=== PATIENT | male | born 1960 | race Caucasian/White ===

== ENCOUNTER → 2019-09-10 09:42 | Outpatient (CLI) | payer BC, SELFPAY ==
[2019-02-27 11:26] VITALS: BMI 44.6
--- NOTE | 2019-09-10 09:43 | ECHOCS_ITS ---
Reason For Study: AVR Procedure This was a 2D Doppler, Color Flow transthoracic echocardiogram. The study was technically difficult. Exam performed in department. Left Ventricle Normal LV size. The estimated ejection fraction is 60 %. Unable to assess diastolic dysfunction. No regional wall motion abnormalities noted. Right Ventricle Normal RV size. Normal systolic function. Atria The left atrium is moderately enlarged. Normal right atrium. No doppler evidence for ASD. Mitral Valve There is moderate mitral annular calcification. There is no mitral valve stenosis. Mild (1+) mitral valve insufficiency. Tricuspid Valve There is no tricuspid stenosis. Trivial tricuspid valve insufficiency. Pulmonary artery systolic pressure is 35 mmHg. Aortic Valve There is no aortic stenosis. Trivial aortic valve insufficiency. Stable appearing bioprosthetic aortic valve apparatus. Pulmonic Valve There is no pulmonic valvular stenosis. No pulmonic valve insufficiency. Great Vessels Normal aortic root. Pericardium/Pleural No pericardial effusion. Medication 22 gauge I.V. with prn adaptor inserted into right arm. Diluted definity 3ml given slow IV push to enhance endocardial definition. MMode/2D Measurements & Calculations LVIDd: 5.3 cm IVSd: 1.3 cm LVOT diam: 2.2 cm LVIDs: 3.8 cm LVPWd: 1.2 cm RVDd: 3.2 cm FS: 29.1 % LVOT area: 3.7 cm2 Ao root diam: 3.8 cm LAV(MOD-bp): 82.6 ml LA A4 area: 25.0 cm2 LAV(MOD-bp) Indexed: 38.9 ml/m2 LAV(MOD-sp2): 77.8 ml LAV(MOD-sp4): 77.2 ml LA dimension(2D): 4.4 cm RA A4 area: 20.7 cm2 Doppler Measurements & Calculations MV E max pranay: 82.0 cm/sec Lat Peak E' Pranay: 9.8 cm/sec Med Peak E' Pranay: 5.6 cm/sec MV A max pranay: 62.6 cm/sec E/E' lat: 8.4 E/E' med: 14.6 MV E/A: 1.3 Ao V2 max: 215.0 cm/sec LV V1 max: 126.7 cm/sec SV(LVOT): 115.4 ml Ao max P.5 mmHg LV V1 max P.4 mmHg Ao V2 mean: 144.8 cm/sec LV V1 mean P.6 mmHg Ao mean P.4 mmHg LV V1 mean: 90.1 cm/sec Ao V2 VTI: 53.2 cm LV V1 VTI: 31.4 cm MARY(I,D): 2.2 cm2 MARY(V,D): 2.2 cm2 PA V2 max: 87.0 cm/sec TR max pranay: 260.4 cm/sec TR max P.2 mmHg Interpretation Summary The study was technically difficult. Contrast injection was performed. The estimated ejection fraction is 60 %. Unable to assess diastolic dysfunction. The left atrium is moderately enlarged. Mild (1+) mitral valve insufficiency. Trivial tricuspid valve insufficiency. The study was technically difficult. Contrast injection was performed. Ordering Physician: Kenisha Avila Referring Physician: Lei Ramos MD Performed By: Josie Zayas RDCS
== END ==
PROVIDERS: PCP Family Medicine; Referring Provider Specialist; Visit Provider Specialist
DX: I11.0 Hypertensive heart disease with heart failure (principal); I50.9 Heart failure, unspecified; I27.20 Pulmonary hypertension, unspecified; E78.5 Hyperlipidemia, unspecified; Z95.2 Presence of prosthetic heart valve
CPT/HCPCS: 93306; Q9957; A4216; C8929

== ENCOUNTER → 2019-12-05 16:31 | Outpatient (CLI) | payer BC, SELFPAY ==
[2019-10-02 13:02] VITALS: BMI 43.9
[2019-12-05 17:59] LABS: Hemoglobin A1c 6.4 % (3.8-5.6)
[2019-12-05 18:01] LABS: ALB/GLOB Ratio 0.6 RATIO (0.9-2.4); AST(SGOT) 23 U/L (15-37); Alanine Aminotransfer ALT/SGPT 37 U/L (16-61); Albumin, Serum 2.9 g/dL (3.2-5.0); Alkaline Phosphatase 85 U/L (45-117); Anion Gap 3 (5-15); BUN 29 mg/dL (7-18); BUN/Creat Ratio 15.8 RATIO (10-20); Calcium,Total 8.6 mg/dL (8.5-10.1); Chloride 110 mmol/L (98-107); Creatinine, Serum 1.84 mg/dL (0.70-1.30); EST Glomerular Filtration Rate 40 mL/min (>60); Est Glom Filt Rate - Afr Amer 49 mL/min (>60); Globulin 4.5 g/dL (2.2-4.2); Glucose 105 mg/dL (74-106); Potassium 4.5 mmol/L (3.5-5.1); Protein, Total 7.4 g/dL (6.4-8.2); Sodium Level 141 mmol/L (136-145)
[2019-12-05 18:30] LABS: Partial Thromboplast Time 30.3 Seconds (24.1-36.2); Prothrombin Time (Protime)PT. 12.9 SECONDS (11.7-14.9)
[2019-12-06 10:27] LABS: Hepatitis B Surface Antigen Non-Reactive (Nonreactive); Hepatitis C Antibody Non-Reactive (Nonreactive)
== END ==
PROVIDERS: PCP Family Medicine; Referring Provider Internal Medicine Gastroenterology; Visit Provider Internal Medicine Gastroenterology
DX: K76.0 Fatty (change of) liver, not elsewhere classified (principal); E11.9 Type 2 diabetes mellitus without complications
CPT/HCPCS: 36415; 80053; 82105; 83036; 85610; 85730; 86803; 87340

== ENCOUNTER 2022-04-15 05:34 | Day surgery (SDC) | payer MEDICAID, SELFPAY ==
--- NOTE | 2022-04-13 12:43 | EKG12_ITS ---
Test Reason : PREOP Blood Pressure : / mmHG Vent. Rate : 062 BPM Atrial Rate : 062 BPM P-R Int : 204 ms QRS Dur : 152 ms QT Int : 476 ms P-R-T Axes : 035 -28 036 degrees QTc Int : 483 ms Normal sinus rhythm Right bundle branch block Abnormal ECG Confirmed by SEBAS HOGUE, COLLETTE ([id number]), associate entertainment editor ALO WALTERS ([id number]) on 04/14/2022 9:58:36 AM Referred By: Celso Almonte Confirmed By:COLLETTE MULLEN MD
[2022-04-13 13:43] LABS: Hematocrit 32.2 % (40-54); Hemoglobin 10.3 g/dL (13.0-16.5); Mean Corpuscular Hgb 30.1 pg (27.0-32.0); Mean Corpuscular Volume 94.2 fL (80-94); Mean Platelet Vol. 11.4 fl (6.2-12.0); Platelet Count 214 K/mm3 (150-450); RBC Distribution Width CV 14.1 % (11.6-14.6); RBC Distribution Width SD 47.9 fl (35.1-43.9); Red Blood Count 3.42 M/mm3 (4.6-6.2); White Blood Count 9.5 K/mm3 (4.4-11.0)
[2022-04-13 14:21] LABS: Anion Gap 5 (5-15); BUN 51 mg/dL (7-18); Calcium,Total 8.7 mg/dL (8.5-10.1); Chloride 110 mmol/L (98-107); Creatinine, Serum 3.65 mg/dL (0.70-1.30); EST Glomerular Filtration Rate 18 mL/min (>60); Est Glom Filt Rate - Afr Amer 22 mL/min (>60); Glucose 167 mg/dL (74-106); Potassium 4.3 mmol/L (3.5-5.1); Sodium Level 141 mmol/L (136-145)
[2022-04-15] VITALS (7 sets, daily range): BP systolic 137–164; BP diastolic 65–77; PULSE 57–72; RESP 16–18; TEMP 36.3–36.8; O2SAT 92–98; BMI 45.1
[2022-04-15 06:45] LABS: Bedside Glucose 151 mg/dL (74-106)
--- NOTE | 2022-04-15 07:15 | HP.PCM_ITS ---
History and Physical Date of Admission: 04/15/22 isit Reasons:?FISTULA CREATION Chief Complaint: fistula creation Renal Technician Required: No Is patient in pain?: No Allergies No Known Allergies Allergy (Verified 03/16/22 10:07) Medications cinnamon bark 500 mg capsule (Cinnamon) 1,000 mg PO BID 02/27/19 [History Confirmed 03/16/22] verapamil 240 mg tablet,extended release 240 mg PO QAM 02/27/19 [History Confirmed 03/16/22] glatiramer 40 mg/mL subcutaneous syringe 40 mg subcut .COMPLEX 10/02/19 [History Confirmed 03/16/22] glipizide 5 mg tablet 5 mg PO DAILY 10/02/19 [History Confirmed 03/16/22] lisinopril 40 mg tablet 40 mg PO DAILY #90 tabs 04/14/20 [Rx Confirmed 03/16/22] aspirin 81 mg tablet,delayed release (Adult Aspirin Regimen) 81 mg PO DAILY 05/23/20 [History Confirmed 03/16/22] carvedilol 25 mg tablet 25 mg PO BID 05/23/20 [History Confirmed 03/16/22] atorvastatin 20 mg tablet 20 mg PO DAILY #90 tabs 06/01/21 [Rx Confirmed 03/16/22] furosemide 20 mg tablet (Lasix) 20 mg PO DAILY #90 tabs 06/15/21 [Rx Confirmed 03/16/22] PFSH Medical History? CHF (congestive heart failure) Chronic kidney disease, stage IV (severe) Diabetes HLD (hyperlipidemia) Lyme disease Migraine headache Multiple sclerosis Pulmonary hypertension Severe aortic stenosis Surgical History? H/O aortic valve replacement H/O right wrist surgery History of ear surgery History of tonsillectomy Family History? Brother CancerFather Cancer CAD (coronary artery disease) Social History? how long ago did patient quit smoking:? 1 year ago alcohol intake:? current alcohol intake frequency: a few times a month Alcohol type: beer substance use type:? former substance user Date of last use: 2 years ago caffeine:? Yes Type: carbonated beverages HPI HPI HPI: 62-year-old gentlemanHe was referred by Dr Angella Zavala for surgical consultation regarding creation of arteriovenous hemodialysis fistula.? A written copy of my surgical consult and recommendations will return to him.? On February 28, 2022 at [facility] he had vein mapping.? The right upper arm basilic vein appears to be adequate.? The right forearm and upper arm cephalic vein appears more marginal.? The left upper arm basilic vein is adequate.? The left upper arm cephalic vein is borderline The patient is right arm dominant. He is disabled.? He does work around the home.? He has had a previous history of pins in his right wrist but that was remotely.? He has a pericardial tissue aortic valve.? He has a history of smoking cigarettes for 40 years and quit in 2017 when he had his heart valve. BMI is elevated at 46.? He is interested in possibly performing home hemodialysis. He has a new puppy.? He has multiple areas of injury excoriation of the left forearm ROS General General: No weight change, appetite, fatigue, colon cancer, breast cancer or weakness HEENT HEENT: No difficulty swallowing, eye injury, eye surgery, swollen glands or hoarseness Endo Endocrine: Yes diabetes mellitus; No thyroid disease, thyroid cancer, Hair loss, heat intolerance or cold intolerance Skin Skin: No rash or changing moles Breast Breast: No left breast lump, right breast lump, nipple discharge, breast pain, abnormal mammogram, abnormal US or breast enlargement Musc Musculoskeletal: Yes back problems, arthritis and gout; No rheumatoid arthritis or joint pain Cardio Cardiovascular: Yes high blood pressure; No murmur, pacemaker, heart disease, atrial fibrillation, heart attack, heart stent, palpitations, shortness of breat with exertion or chest pain Psych Psychiatric: No depression, anxiety or hearing voices Resp Respiratory: Yes shortness of breath, Yes sleep apnea, Yes cough, Yes COPD, No asthma, No emphysema and No wheezing Gastro Gastrointestinal: No abdominal pain, No nausea or vomiting, No diarrhea, No constipation, No blood in stool, No acid reflux, Yes hemorrhoids, No ulcers, No gallbladder problem and No black,tarry stools Keith Hematologic: No blood thinners, No blood disorders, No bleeding, No anemia and No blood clots Neuro Neurologic: No system reviewed and no additional complaints, except as documented, No as per HPI, No abnormal gait, No abnormal hearing, No abnormal movements, No abnormal speech, No behavioral changes, No burning sensations, No confusion, No convulsions, No disequilibrium, No dizziness, No localized weakness, No frequent falls, No headache(s), No lack of coordination, No loss of vision, No memory loss, No numbness, No other visual disturbances, No radicular pain, No restless legs, No sensory deficit, No syncope, No tingling, No tremor(s), No weakness and No other Exam Const General: cooperative, comfortable and no acute distress [facility] Head: normal to inspection Eyes General: appearance normal, both eyes and all related structures Neck Neck: normal visual inspection Chest Other: Increased AP diameter Resp Effort & Inspection: normal respiratory effort Auscultation: clear to auscultation bilaterally Cardio Rate: regular rate Rhythm: regular rhythm GI Other: Protuberant abdomen, overweight, cannot take detect any internal organs Musc Cervical Spine: normal cervical lordosis Skin General: no rashes or lesions noted Neuro General: patient alert, patient awake and patient oriented x3 Extrem General: no calf tenderness Other: Left forearm patent compressible cephalic vein albeit 5 to 6 mm deep.? Multiple areas of excoriation left forearm.? 3+ radial left radial pulse Psych Appearance: grossly normal Assessment and Plan Assessment and Plan (1) Chronic kidney disease, stage IV (severe): ?Status:?Chronic ?Plan: The patient is right arm dominant.? I am able to visualize the cephalic vein of the left forearm.? It branches closer to the wrist.? Unfortunate for majority of the forearm its rather deeply placed.? The patient has rather shorter forearms.? He is hoping to do home hemodialysis. I recommend that he completely heals left forearm from his new puppy areas as topical injury.? I have made it clear that he must have an absolutely clean forearm for us to pursue.? I propose for him a transposition left forearm cephalic vein to radial artery to venous hemodialysis fistula creation.? I described the technique, benefit, risk of alternatives.? He has had an opportunity to ask and have questions answered.? We will schedule and proceed at his discretion. I appreciate the opportunity of assisting with the surgical care Copy: Dr Angella Zavala and Dr. Lei Almonte M.D., F.A.C.S I have examined the patient and the H&P has been reviewed. There are no clinical changes since date of exam. Celso Almonte M.D., F.A.C.S.
--- NOTE | 2022-04-15 07:16 | EX.PCM.DISCH ---
Discharge Instructions Procedure Fistula Diet Discharge Diet: Renal Diet Activity Discharge Activity: May Not Drive (for 2-3 days or while taking narcotic pain medications.) and May Take a Tub Bath (in 5 days.) Lifting Restrictions: 5 pounds Keep extremity elevated above heart level: - (Keep arm elevated above the heart level for 3 days.) Dressing / Incision Call your doctor if your incision/area has: Continuous Slow Oozing, Sudden Increased Bleeding (apply pressure and call your doctor.), Increased Pain/ Swelling, Increased Redness and Foul Smelling Discharge Call your doctor if you observe: Fever of 101 or Higher Suture Line Care: Avoid Pulling/Pushing and Avoid Pinching/Bending Cleanse incision/area with: Keep Dressing Clean & Dry Additional Dressing/Incision Instructions:: Elevate your left arm for comfort. Keep the elastic wrap in place for 2 to 3 days. You may then remove it. Leave the Steri-Strips in place for an additional 1 week. Follow Up Care Please Follow Up With: Celso Almonte MD When: Call [phone] to make an appointment for suture removal and follow up in 10 days Discharge Plan Admission Attending Provider: Celso Almonte Primary Care Provider: Lei Ramos Discharge Orders/Prescriptions Prescriptions: No Action cinnamon bark [Cinnamon] 500 mg capsule 1,000 mg PO BID aspirin [Adult Aspirin Regimen] 81 mg tablet,delayed release (DR/EC) 81 mg PO DAILY carvedilol 25 mg tablet 25 mg PO BID Rx Instructions: must administer with a meal/food hydralazine 25 mg tablet 75 mg PO TID Label Comments: TAKE 3 TABLETS BY MOUTH THREE TIMES DAILY allopurinol 100 mg tablet 100 mg PO DAILY Label Comments: TAKE 2 TABLETS BY MOUTH ONCE DAILY tamsulosin 0.4 mg capsule 0.4 mg PO DAILY Label Comments: TAKE 1 CAPSULE BY MOUTH ONCE DAILY ferrous sulfate 325 mg (65 mg iron) Tablet 325 mg PO DAILY doxazosin 4 mg tablet 4 mg PO DAILY Label Comments: TAKE 1 TABLET BY MOUTH ONCE DAILY vitamin B complex Tablet 1 tab PO DAILY cholecalciferol (vitamin D3) [Vitamin D3] 125 mcg (5,000 unit) Tablet 125 mcg PO DAILY Lokelma 10 gram powder in packet 10 g PO QODAY Label Comments: MIX AND DRINK 1 PACKET BY MOUTH EVERY DAY furosemide [Lasix] 20 mg tablet 40 mg PO DAILY atorvastatin 20 mg tablet 20 mg PO DAILY Qty: 90 3RF Referrals / Follow Up: Lei Ramos MD [Primary Care Provider] - Disposition Disposition (needs filled in before D/C Order can be placed): Home, Self Care
[2022-04-15] MEDS: Cefazolin 2 GM in 0.9% Normal Saline 100 ML IV (07:24)
[2022-04-15] MEDS: Lidocaine 1% (20 ml mdv) 20 ML Vial (07:48)
[2022-04-15] MEDS: Heparin Injection (Vial) 5,000 UNIT/ML VIAL 5000 UNIT (07:48)
--- NOTE | 2022-04-15 09:11 | PCM.OPRPT ---
Report of Operation Date of Procedure: 04/15/22 Pre-Operative Diagnosis: Stage IV chronic kidney disease Post-Operative Diagnosis: Same Surgery/Procedure Performed:: Transposition left forearm cephalic vein to radial artery arteriovenous hemodialysis fistula creation Description of Surgical Findings:: Timeout informed consent was obtained. 62-year-old gentleman was taken to the operating placed upon the table initially we tried monitored anesthesia care but the patient has sleep apnea and and that did not work so we converted to a general anesthetic. The left upper extremity had been sterilely prepped and draped. 1% lidocaine mixed 50-50 with 0.5% Marcaine was used as local anesthetic and. Ultrasound mapping of the cephalic vein was performed prior to starting. Then local was instilled longitudinal incision was made along the radial aspect of the left forearm guided by the course of the vein sharp and blunt dissection used to harvest the vein side branches were secured with 4-0 Vicryl ligatures and hemoclips the incision was made all the way up to the antecubital space and an adequate length vein was mobilized. Anterior surface of the vein was marked with ink. Then through the same incision elevated the flap identified the radial artery distally sharply and bluntly dissected it free to have an adequate length of mobilization. The vein was ligated distally with a Hemoclip I then used a straight tunneler from the wrist to the antecubital space placed the vein underneath the tunnel and appear to be in a good positional lie irrigated it with saline. Appear to be good positional lie I then gave the patient 10,000 units of heparin. After adequate circulation time peripheral vascular monitor placed on the radial artery and 11 blade was used to make an arteriotomy which was extended with Patrick scissors the vein was spatulated end-to-side venous to arterial anastomosis was created with a running 7-0 Prolene prior to completion there is good antegrade retrograde flow immediately there was good flow in the fistula. It was checked with a Doppler with good unencumbered flow. It appeared to have good positional lie. Hemostasis was intact. The deep tissues were approximated with interrupted 3-0 Vicryl. Subdermal tissues approximated the same. Skin edges proximal and running subicular 4 Monocryl. Steri-Strips Telfa 4 x 4 ABDs soft roll Jv wrap applied. Sponge and instrument and needle counts were reported to the surgeon to be correct. Specimens none. Drains none. Blood loss quite minimal. The patient's hand was viable at the completion without apparent complication. He was taken to the recovery room. Celso Almonte M.D., F.A.C.S. Surgeon: Celso Almonte Type of Anesthesia: General Anesthesiologist: Raheel Hodge
[2022-04-15 10:01] LABS: Bedside Glucose 129 mg/dL (74-106)
== END 2022-04-15 11:14 | disposition home or self-care (01) ==
LOC: SDC 05:35 → AC 05:35
PROVIDERS: PCP Family Medicine; Referring Provider Surgery; Visit Provider Surgery
PROC: (CPT 36820; principal; 2022-04-15 07:15)
DX: I12.9 Hypertensive chronic kidney disease with stage 1 through stage 4 chronic kidney disease, or unspecified chronic kidney disease (principal); G35 Multiple sclerosis; I27.20 Pulmonary hypertension, unspecified; I50.9 Heart failure, unspecified; E11.22 Type 2 diabetes mellitus with diabetic chronic kidney disease; N18.4 Chronic kidney disease, stage 4 (severe); E78.5 Hyperlipidemia, unspecified; Z79.82 Long term (current) use of aspirin; Z79.84 Long term (current) use of oral hypoglycemic drugs; Z79.899 Other long term (current) drug therapy; Z87.891 Personal history of nicotine dependence
CPT/HCPCS: 36820; 01844; 36415; 80048; 82962; 85027; 87426; 93005; C9803; J7040; J2405

== ENCOUNTER 2024-05-18 13:17 | Emergency (ER) | payer MEDICAID, MEDICARE, SELFPAY ==
[2024-05-18] VITALS (46 sets, daily range): BP systolic 85–154; BP diastolic 24–95; PULSE 30–87; RESP 12–26; TEMP 36.6–36.7; O2SAT 91–99; BMI 39.4
--- NOTE | 2024-05-18 13:30 | EKG12_ITS ---
Test Reason : BRADYCARDIA Blood Pressure : */* mmHG Vent. Rate : 39 BPM Atrial Rate : 39 BPM P-R Int : 480 ms QRS Dur : 152 ms QT Int : 546 ms P-R-T Axes : 58 0 46 degrees QTcB Int : 439 ms Critical Test Result: Low HR Marked sinus bradycardia with 1st degree A-V block Right bundle branch block Abnormal ECG Confirmed by VAUGHN HOGUE, DORIS ([id number]), city editor NADER ELAINE ([id number]) on 05/21/2024 7:25:04 AM Referred By: SABINO Confirmed By: DORIS MENDES MD
--- NOTE | 2024-05-18 13:30 | EX.ED.DYSGE1 ---
HPI History of Present Illness Chief Complaint: Palpitations Informant: patient and EMS Narrative Narrative: 64-year-old male presenting to the emergency room with bradycardia and weakness/dizziness. Patient states that intermittently over the past week particular with exertion he has felt weak and dizzy. He gets at home peritoneal dialysis. He states that today dialysis was out the house and asked them to check his vital signs and he was noted to be bradycardic. EMS was called prehospital EKG is concerning for third-degree heart block. Patient denies any chest pain shortness of breath leg swelling. He notes that he had mitral valve bioprosthetic replacement at [facility] several years ago. [facility] Medical History Wears dentures Wears glasses Alcohol use Arthritis History of renal disease High cholesterol Excessive bleeding Injury of back Former smoker CPAP (continuous positive airway pressure) dependence Sleep apnea COPD (chronic obstructive pulmonary disease) Shortness of breath on exertion History of edema History of echocardiogram History of stress test Hypertension Cardiology follow-up encounter History of CHF (congestive heart failure) Chronic kidney disease, stage IV (severe) Migraine headache Lyme disease Multiple sclerosis Diabetes HLD (hyperlipidemia) Severe aortic stenosis CHF (congestive heart failure) Pulmonary hypertension Home Medications ?Medication ?Instructions ?Recorded ?Last Taken ?Type cinnamon bark 500 mg capsule 1,000 mg PO DAILY 02/27/19 04/14/22 History (Cinnamon) aspirin 81 mg tablet,delayed 81 mg PO DAILY 05/23/20 04/14/22 History release (Adult Aspirin Regimen) carvedilol 25 mg tablet 25 mg PO BID 05/23/20 04/14/22 History atorvastatin 20 mg tablet 20 mg PO DAILY #90 tabs 06/01/21 04/14/22 Rx allopurinol 100 mg tablet 100 mg PO Q12H 04/08/22 04/14/22 History cholecalciferol (vitamin D3) 125 125 mcg PO DAILY 04/08/22 04/14/22 History mcg (5,000 unit) tablet (Vitamin D3) furosemide 20 mg tablet (Lasix) 20 mg PO DAILY 04/08/22 04/14/22 History tamsulosin 0.4 mg capsule 0.4 mg PO DAILY 04/08/22 04/14/22 History vitamin B complex 1 tab PO DAILY 04/08/22 04/14/22 History calcium acetate(phosphat bind) 667 1,334 mg PO TID 05/18/24 Unknown History mg capsule dulaglutide 0.75 mg/0.5 mL 0.75 mg subcut QWEEK 05/18/24 Unknown History subcutaneous pen injector (Trulicity) dulaglutide 1.5 mg/0.5 mL 1.5 mg subcut QWEEK 05/18/24 Unknown History subcutaneous pen injector (Trulicity) glipizide 5 mg tablet 5 mg PO BID 05/18/24 Unknown History Allergy/AdvReac Type Severity Reaction Status Date / Time No Known Allergies Allergy Verified 05/18/24 13:21 Family History Brother Cancer Father Cancer CAD (coronary artery disease) Surgical History S/P arteriovenous (AV) fistula creation History of cardiac catheterization History of ear surgery H/O right wrist surgery H/O aortic valve replacement History of tonsillectomy Social History Smoking Status: Former smoker how long ago did patient quit smokin year ago alcohol intake: current alcohol intake frequency: a few times a month Alcohol type: beer substance use type: former substance user Date of last use: 2 years ago caffeine: Yes Type: carbonated beverages ROS ROS ED ROS Narrative Generalized weakness dizziness Constitutional Constitutional ED: Denies chills or weight loss Eyes Eyes: Denies change in vision or diplopia ENT ENT ED: Denies ear pain, rhinorrhea or sore throat Cardiovascular Cardiovascular: Denies chest pain, orthopnea, palpitations or racing heartbeat Respiratory/Chest Respiratory/Chest: Denies cough, dyspnea or orthopnea Gastrointestinal Gastrointestinal: Denies abdominal pain, diarrhea, nausea or vomiting Genitourinary Genitourinary ED: Denies dysuria, hematuria or urinary frequency Musculoskeletal Musculoskeletal: Denies arthralgias or myalgias Integumentary Denies abscess or rash Neurologic Neurologic: Denies headache(s) or weakness Psychiatric Psychiatric: Denies anxiety, depression, suicidal ideation or suicidal thoughts Endocrine Endocrinology: Denies polydipsia, polyphagia or polyuria Allergic/Immunologic Allergic/Immunologic ED: Denies mouth swelling, tongue swelling or urticaria EXAM Physical Exam Const Vital Signs: 05/18/24 13:18 05/18/24 13:29 05/18/24 14:02 Temperature 97.8 F Temperature Source Oral Pulse Rate 40 L 41 L Respiratory Rate 16 Respiratory Effort Labored Blood Pressure 85/54 L Blood Pressure Mean 64 Pulse Ox 99 Oxygen Delivery Method Room Air 05/18/24 14:07 05/18/24 14:15 05/18/24 14:30 Temperature Temperature Source Pulse Rate 38 L 35 L 34 L Respiratory Rate 15 16 13 Respiratory Effort Blood Pressure 136/48 H 141/46 H Blood Pressure Mean 75 74 Pulse Ox 98 96 93 Oxygen Delivery Method 05/18/24 14:45 05/18/24 15:00 05/18/24 15:15 Temperature Temperature Source Pulse Rate 38 L 37 L 39 L Respiratory Rate 18 18 13 Respiratory Effort Blood Pressure 140/46 H 142/50 H Blood Pressure Mean 74 77 Pulse Ox 92 99 Oxygen Delivery Method Room Air Room Air Positive well nourished, well developed and obese General Appearance ED: well developed and NAD Nutritional Appearance: obese HEENT Reports normocephalic, head/scalp atraumatic and moist mucous membranes Eyes PERRL and EOMs intact bilaterally Neck no lymphadenopathy, supple and no JVD Resp normal respiratory effort and clear to auscultation bilaterally Cardio regular rate, regular rhythm and no murmurs Rate: bradycardia GI normal to inspection, nondistended, normoactive bowel sounds and non-tender Palpation: soft Back/Spine no CVA tenderness and normal ROM Extremity normal to inspection General Extremety ED: Negative for edema General Extremity: Negative for edema Neuro oriented x3 and CN's II-XII intact bilaterally Sensorium / Orientation: alert Motor Exam: strength 5/5 throughout Psych mental status grossly normal Mood & Affect: Negative for depressed or tearful Skin no rashes or lesions noted and no wounds MDM MDM MDM Narrative Medical decision making narrative: Differential diagnosis includes but not limited to heart block ACS electrolyte abnormalities anemia dehydration Prehospital EKG was reviewed and is concerning for third-degree heart block. EKG done upon his arrival as well as subsequent EKG shows a narrow complex right bundle branch block with apparent third-degree heart block. Case was discussed with on-call cardiology who is in agreement with this. White count noted to be 14.8 hemoglobin 10.5 platelet count of 191. Magnesium 2.4 potassium is 4 sodium 133 troponin is 26 creatinine 11.6 glucose 95. My independent interpretation the chest x-ray is no acute process. Patient's blood pressure has been stable. Initially he was noted to be 85/54 but mentating and appearing well. Subsequent blood pressure readings have been between 105 and 120 systolically. I spoke with the patient. Given that he is peritoneal dialysis we cannot admit him here. He would like to see about being transferred to [facility]. History & Record Review Discussion w/independent historian: Patient Additional record(s) reviewed:: Prior labs Lab Data Attestation: I reviewed the patient's lab results. Labs: Laboratory Results - last 24 hr 05/18/24 13:20 WBC 14.8 H RBC 3.28 L Hgb 10.5 L Hct 32.5 L MCV 99.1 H MCH 32.0 MCHC 32.3 RDW Std Deviation 51.1 H RDW Coeff of Shanika 14.3 Plt Count 191 MPV 11.3 Immature Gran % (Auto) 0.500 Neut % (Auto) 65.2 Lymph % (Auto) 21.3 [place] % (Auto) 7.2 Eos % (Auto) 5.2 H Baso % (Auto) 0.6 Absolute Neuts (auto) 9.6 H Absolute Lymphs (auto) 3.16 Nucleated RBC % 0 PT 13.3 INR 1.0 APTT 28.3 Sodium 133 L Potassium 4.0 Chloride 96 L Carbon Dioxide 27.0 Anion Gap 10 BUN 59 H Creatinine 11.60 H* Estim Creat Clear Calc 6.88 Est GFR (MDRD) Af Amer 6 L Est GFR (MDRD) Non-Af 5 L BUN/Creatinine Ratio 5.1 L Glucose 95 Calcium 10.7 H Magnesium 2.4 Troponin I High Sens 26 Radiography Diagnostic Testing: Clinical Impression(s) from Imaging Studies Chest X-Ray 05/18/24 13:45 IMPRESSION: No acute cardiopulmonary process. Reading [facility] Management Discussion w/another healthcare provider: Certifed Refrigeration Operator (Dr Nichole ([facility])) Critical Care Time Critical Care Time: Yes Critical care time (excluding procedures): 30-74 minutes (35 min), Including time spent:, Discussing w/Patient &/or Family/Manager Procurement, Discussing w/Consultants, Arranging Admission or Transfer and Performing Direct Patient Care at Bedside Discharge Plan Triage Chief Complaint: Palpitations ED Provider: Klaus Campbell Dx/Rx/DC Orders Clinical Impression: Third degree heart block, Diabetes, Chronic kidney disease with end stage renal failure on dialysis Prescriptions: No Action cinnamon bark [Cinnamon] 500 mg capsule 1,000 mg PO DAILY aspirin [Adult Aspirin Regimen] 81 mg tablet,delayed release (DR/EC) 81 mg PO DAILY carvedilol 25 mg tablet 25 mg PO BID Rx Instructions: must administer with a meal/food allopurinol 100 mg tablet 100 mg PO Q12H Patient Comments: TAKE 2 TABLETS BY MOUTH ONCE DAILY tamsulosin 0.4 mg capsule 0.4 mg PO DAILY Patient Comments: TAKE 1 CAPSULE BY MOUTH ONCE DAILY vitamin B complex Tablet 1 tab PO DAILY cholecalciferol (vitamin D3) [Vitamin D3] 125 mcg (5,000 unit) Tablet 125 mcg PO DAILY furosemide [Lasix] 20 mg tablet 20 mg PO DAILY calcium acetate(phosphat bind) 667 mg capsule 1,334 mg PO TID glipizide 5 mg tablet 5 mg PO BID Trulicity 0.75 mg/0.5 mL pen injector 0.75 mg subcut QWEEK Trulicity 1.5 mg/0.5 mL pen injector 1.5 mg subcut QWEEK atorvastatin 20 mg tablet 20 mg PO DAILY Qty: 90 3RF Primary Care Provider: Lei Ramos Referrals: Lei Ramos MD [Primary Care Provider] - Print Language: [place]se Disposition Disposition: Acute Care Hospital Discharge Location: [facility]
[2024-05-18 13:37] LABS: Absolute Lymphocyte Count 3.16 X10^3/uL (0.83-4.51); Absolute Neutrophil Count 9.6 X10^3/uL (2.0-7.7); Basophil# 0.09 X10^3/uL; Basophil% 0.6 % (0-1); Eosinophil# 0.77 X10^3/uL; Eosinophils% 5.2 % (0-5); Hematocrit 32.5 % (40-54); Hemoglobin 10.5 g/dL (13.0-16.5); Lymphocyte # 3.16 X10^3/ul (0.83-4.51); Lymphocyte % 21.3 % (19-41); Mean Corp Hgb Conc 32.3 g/dL (32-36); Mean Corpuscular Volume 99.1 fL (80-94); Mean Platelet Vol. 11.3 fl (6.2-12.0); Monocyte# 1.07 X10^3/uL; Monocyte% 7.2 % (0-10); NRBC Flagged by Analyzer 0 % (0-5); Neutrophil # 9.64 X10^3/uL (2.7-7.7); Neutrophil % 65.2 % (47-70); Platelet Count 191 K/mm3 (150-450); RBC Distribution Width CV 14.3 % (11.6-14.6); RBC Distribution Width SD 51.1 fl (35.1-43.9); Red Blood Count 3.28 M/mm3 (4.6-6.2); White Blood Count 14.8 K/mm3 (4.4-11.0)
--- NOTE | 2024-05-18 13:45 | RAD_ITS ---
EXAM: XR Chest, 1 View CLINICAL INDICATION: TECHNIQUE: Frontal view of the chest. COMPARISON: No relevant prior studies available. FINDINGS: LUNGS AND PLEURAL SPACES: Unremarkable. No consolidation. No pneumothorax. HEART: Unremarkable. No cardiomegaly. MEDIASTINUM: Unremarkable. Normal mediastinal contour. BONES/JOINTS: Unremarkable. No acute fracture. RAD/Chest 1 View (Portable) IMPRESSION: No acute cardiopulmonary process. Reading [facility]
[2024-05-18 14:00] LABS: Anion Gap 10 (5-15); BUN 59 mg/dL (7-18); BUN/Creat Ratio 5.1 RATIO (10-20); Calcium,Total 10.7 mg/dL (8.5-10.1); Chloride 96 mmol/L (98-107); EST Glomerular Filtration Rate 5 mL/min (>60); Est Glom Filt Rate - Afr Amer 6 mL/min (>60); Estimated Creatinine Clearance 6.88 ml/min; Glucose 95 mg/dL (74-106); Magnesium 2.4 mg/dL (1.6-2.6); Sodium Level 133 mmol/L (136-145); Troponin-I HS 26 pg/mL (3.0-78.0)
--- NOTE | 2024-05-18 14:04 | EKG12_ITS ---
Test Reason : Blood Pressure : */* mmHG Vent. Rate : 38 BPM Atrial Rate : 38 BPM P-R Int : 512 ms QRS Dur : 158 ms QT Int : 578 ms P-R-T Axes : 44 -11 39 degrees QTcB Int : 459 ms Critical Test Result: Low HR Marked sinus bradycardia , with second degree AV block Right bundle branch block Abnormal ECG Confirmed by VAUGHN HOGUE, DORIS ([id number]), newspaper managing editor ALO WALTERS ([id number]) on 05/21/2024 10:23:25 AM Referred By: SABINO Confirmed By: DORIS MENDES MD
[2024-05-18 14:12] LABS: Partial Thromboplast Time 28.3 Seconds (24.1-36.2)
[2024-05-18 14:18] LABS: Prothrombin Time (Protime)PT. 13.3 SECONDS (11.7-14.9)
--- NOTE | 2024-05-18 16:03 | ED.RN ---
brother in law - Luis Acuna [phone]
[2024-05-18 21:48] LABS: Bedside Glucose 54 mg/dL (74-106)
[2024-05-18] MEDS: Dextrose 5%/0.9% NaCl 1,000 ML 100 ML IV (22:21)
--- NOTE | 2024-05-18 23:40 | ED.RN ---
Called [employer] [facility] @ 2226 to see if they had availability for transport tonight, they did not. Then called [facility] transportation to inquire the same @ 2231, they did not have availability either. Lastly called [facility] transportation @ 2234, they also had no availability.
--- NOTE | 2024-05-18 23:42 | ED.RN ---
Called [employer] @ 1070 to see if they had availability tonight, they did not. Called [employer] transportation @ [phone] to inquire the same, they did not have availability either.
[2024-05-19] VITALS (20 sets, daily range): BP systolic 103–139; BP diastolic 39–75; PULSE 34–42; RESP 13–20; O2SAT 91–100
--- NOTE | 2024-05-19 03:15 | ED.RN ---
received [facility], spoke to Leticia. She let us know the crew that was supposed to take the pt took longer than expected on the prior trip, so they now won't have time to complete pts trip before shift change. eta is now 0700.
--- NOTE | 2024-05-19 03:23 | ED.RN ---
Called [facility] @ 2199 to arrange transport for pt, spoke with Adriel. Eta given is 5-6 hours, requested outsourcing, he stated they would try. Called [facility] @ 2209 to see if they have any availability for transport, they let us know they do not for the next several hours. Then called [facility] to see if they have ground transport availability @ 2214, they called back @2219 to let us know they do not.
--- NOTE | 2024-05-19 05:46 | ED.RN ---
This RN called report at this time to MOON Mccarthy at [facility].
== END 2024-05-19 07:12 | disposition short-term general hospital (02) ==
PROVIDERS: Emergency Provider Emergency Medicine; PCP Family Medicine; Visit Provider Emergency Medicine
DX: I44.2 Atrioventricular block, complete (principal); I13.2 Hypertensive heart and chronic kidney disease with heart failure and with stage 5 chronic kidney disease, or end stage renal disease; N18.6 End stage renal disease; G35 Multiple sclerosis; I50.9 Heart failure, unspecified; J44.9 Chronic obstructive pulmonary disease, unspecified; E11.22 Type 2 diabetes mellitus with diabetic chronic kidney disease; E78.00 Pure hypercholesterolemia, unspecified; E66.9 Obesity, unspecified; Z68.39 Body mass index [BMI] 39.0-39.9, adult; Z95.2 Presence of prosthetic heart valve; Z79.82 Long term (current) use of aspirin; Z79.84 Long term (current) use of oral hypoglycemic drugs; Z79.85 Long-term (current) use of injectable non-insulin antidiabetic drugs; Z79.899 Other long term (current) drug therapy; Z87.891 Personal history of nicotine dependence; Z99.2 Dependence on renal dialysis
CPT/HCPCS: 71045; 80048; 82962; 83735; 84484; 85025; 85610; 85730; 93005; 96365; 96366; 99285; A4216